=== PATIENT | female | born 1965 | race Caucasian/White ===

== ENCOUNTER 2016-06-04 08:47 | Day surgery (SDC) | payer BC ==
[~2016-06-04] VITALS: Ht 154.9 cm; Wt 63.5 kg
[~2016-06-04 08:47] MED LIST: BUPIVACAINE MPF 0.5% 30 ML VIAL. ONE; CEFAZOLIN 1GM IVPB FOR OMNI 50 ML IV ONE; EPINEPHRINE 30 MG/30 ML VIAL. ONE; FENTANYL PF 100 MCG/2 ML VIAL. IV PRN; HYDROMORPHONE 2 MG/ML VIAL. IV PRN; IV RINGERS,LACTATED 1000ML 1,000 ML IV SCH; LIDOCAINE 1% 1 ML SYRINGE. ID PRN; LIDOCAINE 1% 20 ML VIAL. ONE; ONDANSETRON PF 4 MG/2 ML VIAL. IV PRN; PROCHLORPERAZINE 10 MG/2 ML VIAL. IV PRN
[2016-06-04 09:35] LABS: NEG OBC UR NEG; POS OBC UR POS
[2016-06-04] MEDS ORDERED: PROPOFOL 20 ML IV ONE (10:01)
[2016-06-04] MEDS ORDERED: FENTANYL PF 100 MCG/2 ML VIAL. ONE ×2 (10:02→11:53)
[2016-06-04] MEDS ORDERED: LIDOCAINE 2% 100 MG/5 ML DISP.SYRIN. ONE (10:02)
[2016-06-04] MEDS ORDERED: ONDANSETRON PF 4 MG/2 ML VIAL. ONE (10:02)
--- NOTE | 2016-06-04 10:22 | DISCH ---
DISCHARGE INSTRUCTIONS Condition on Discharge Condition on Discharge: Stable Activity After Discharge Activity Instructions for Disc: No restrictions, Other, see below Other activity instructions: WBAT Bathing Instructions: Shower-keep dressing dry Weight Bearing Status after Di: As tolerated, Non weight bearing Diet after Discharge Diet after Discharge: Regular Wound Incision Care Wound/Incision Care: Ice to area for comfort, Keep wound/cast CDI, Change dressing Contacting the DR. after DC Call your doctor for: Concerns you may have Follow-Up Follow up with: Franck in 2wks SOLEDAD CABRERA II, MD Jun 04, 2016 10:22
--- NOTE | 2016-06-04 10:23 | PDOC ---
BRIEF OPERATIVE NOTE Date: Jun 04, 2016 Pre-Op Diagnosis L ACL tear Post-Op Diagnosis same Procedure Performed L ACL recon with hybrid graft Surgeon Franck Mg Anesthesia Type: General Blood Loss 10mL Complications none SOLEDAD CABRERA II, MD Jun 04, 2016 10:23
[2016-06-04] MEDS ORDERED: EPHEDRINE PF IN SALINE 50 MG/5 ML DISP.SYRIN. IV ONE (11:04)
[2016-06-04] MEDS ORDERED: SEVOFLURANE 61 TO 120 MINUTES. IH ONE (12:23)
[2016-06-04] MEDS: FENTANYL PF 100 MCG/2 ML VIAL. IV PRN ×2 (13:12→13:18)
[2016-06-04] MEDS ORDERED: DOCU-27 PO (13:21)
[2016-06-04] MEDS ORDERED: OXYC-323 PO (13:22)
[2016-06-04] MEDS ORDERED: ONDA4TAB10 SL (13:22)
[2016-06-04] MEDS ORDERED: OXYCODONE/APAP 5/325 TABLET. PO ONE (13:30)
[2016-06-04] MEDS: MORPHINE SULFATE 2 MG/ML DISP.SYRIN. IV PRN ×2 (13:40→13:50)
[2016-06-04 14:20] VITALS: BP 112/78
--- NOTE | 2016-06-04 15:02 | OP ---
DATE OF SURGERY: 06/04/2016 SURGEON: Ronnie Cabrera MD SOFTWARE VERIFICATION ENGINEER: Ioana Mg. ANESTHESIA: General. PREOPERATIVE DIAGNOSIS: Left knee anterior cruciate ligament tear. POSTOPERATIVE DIAGNOSES: 1. Left knee anterior cruciate ligament tear. 2. Small superficial scuffing of posterior aspect of the lateral meniscus. FINDINGS: 1. A complete ACL tear off the femoral side. Intact, but soft cartilage at her medial femoral condyle as well as proximal tibia. Intact and stable medial meniscus. 2. Intact PCL. 3. No changes at her patellofemoral joint. 4. Her lateral compartment had a 5 x 1-cm area where there was partial thickness cartilage loss, but no exposed bone. This was approximately at 20 or 30 degrees of flexion. Her lateral meniscus itself had a 1 mm x 3 mm area of superficial scuffing without a complete tear. PROCEDURE PERFORMED: 1. Arthroscopic autograft hamstring hybrid ACL reconstruction. 2. Debridement of lateral meniscus tear. COMPLICATIONS: None. ESTIMATED BLOOD LOSS: 25 mL. COMPONENTS INSERTED: 1. [employer]hew 15 mm in length Endobutton. 2. A 10-mm Biomet TunneLoc. REASON FOR PROCEDURE: The patient is a very pleasant 50-year-old who injured her knee skiing. She was seen and evaluated in my outpatient orthopedic surgery clinic and clinical and radiographic evidence were consistent with an ACL tear. We had a discussion of the risks, benefits, and alternatives as well as rationale for ACL reconstruction and the rehab and she wished to proceed in order to maintain her active lifestyle. DESCRIPTION OF PROCEDURE: The patient was greeted in the preoperative area by myself where the correct extremity was marked and verified. She was taken to the operative suite and antibiotics started en route. Once in the OR, she was transferred gently supine to the OR table and underwent successful induction of her general anesthesia. I then conducted examination under anesthesia, which revealed positive Keisha with a solid endpoint, positive pivot shift, negative dial in the knee that was stable to varus and valgus in extension and 30 degrees of flexion. We then proceeded to place a bolster at her hip and padded foot rest across the table to maintain her knee at 90 degrees. We then placed and taped a nonsterile tourniquet to her left thigh. We then proceeded to prep and drape left lower extremity in our usual sterile fashion and conducted our standard preoperative timeout. I then palpated and marked her surface anatomy including patella, patellar tendon and tibial tuberosity as well as my incision for my hamstring harvest. I then began the procedure by exsanguinating the extremity with an Esmarch and insufflating the tourniquet to 300 mmHg. I then incised skin for my hamstring harvest over proximal medial tibia and dissected through subcutaneous tissue with electrocautery and then bluntly. I palpated for her proximal hamstring tendon and used a Yolie to incise the fascia above this. I then opened the fascia and used a 90-degree clamp to free up the adherent surrounding soft tissue from the hamstring tendon. I then clamped the hamstring tendon and then released it sharply off bone. I then placed a running #2 Ultrabraid in a whipstitch fashion through this end and released my clamp. I then freed up the adherent tendinous adhesions bluntly and with [place]. I then used the tendon stripper to harvest the graft. The graft was taken to the back table where it was denuded of muscle and fat. It was cut to 21 cm in length and then another #2 Ultrabraid was whipstitched to the other end. The graft was then placed in a moistened lap. We then had our peroneus longus allograft thawing and I removed about 25% of this and then whipstitched #2 Ultrabraid at either end of this as well. We sized this graft and it was 9 at the femur and 9.5 at the tibia. I then placed the graft through the Endobutton and placed it under tension and then wrapped a lap sponge around it. I then directed my attention back to the arthroscopic portion. It should be noted that my social services assistant, Ioana did most of the placement of the stitches and the graft while I was debriding the ACL. The ACL was debrided with combination of shaver and biter. I did use an open end curette at the medial aspect of the lateral femoral condyle as well. I then used a microfracture awl to esme my anticipated tunnel placement and then inspected this from an anteromedial vantage point and was happy with placement. I used our tip guide for the 55 degrees referencing the PCL as well as anterior horn of the lateral meniscus and advanced the guidewire for a tibial tunnel. I was happy with the position and orientation of this tunnel. We then protected the drill tip with a curette and advanced our reamer through the tibia and I then cleaned up the tunnel with the shaver. We then placed our tunnel plug. We then hyperflexed the knee and using #6 over the top guide, which put me at my marked position. I advanced the Beath pin out and brought in the subcutaneous tissue followed by an Endobutton reamer. I then removed the Beath pin and Endobutton reamer and measured for a tunnel. It was approximately 33 mm. I then replaced the Beath pin out through skin and reamed with my femoral [place] reamer to approximately 27 and 28. I then removed the hardware and inspected the tunnel from the anteromedial portal and was happy with this position. She had an intact lateral cortex. After removing all the loose bony debris from the knee, I then hyperflexed the knee again, advanced the Beath pin and used this to pull a #2 Ultrabraid through the femoral tunnel. A loop grasper was then used to retrieve the other end of this and pulled it through the tibial tunnel. We then passed our graft without complication confirmed by a good toggle of the Endobutton on the lateral cortex, which disappeared with backward traction on the graft. I then put maximal backward traction on the graft after removing my camera and cycled the knee repeatedly. I then inserted my guidewire and my Biomet TunneLoc device and secured the graft to this. I then applied tension through the device. I then cycled the knee again and got another quick tension. I then impacted my TunneLoc into position. I then removed the TunneLoc insertion device. She had a negative Keisha with a solid endpoint at this point. I did reintroduce the camera and inspected the graft position. There was no impingement and I was happy with the graft position. I then inserted the camera and shaver in the suprapatellar pouch and social services assistant vigorously palpate behind the posterior aspect of the knee and we did this to make sure we removed all loose bony debris. After this, all excess arthroscopic fluid and the arthroscopic instrumentation were removed from the knee. I then trimmed the ends of the graft at the tibial tunnel and used the shaver sheath to inject local anesthetic into her hamstring area. We then closed the tibial incision with inverted interrupted 2-0 Vicryl followed by running 4-0 Monocryl in subcuticular fashion. Simple interrupted nylon was used for the portals. The leg was cleansed and dried and sterile dressing was applied followed by cast padding and Jg wrap and hinged knee brace in full range of motion. Postop plan is to discharge the patient, weightbearing as tolerated with crutches. She will follow up with me in 2 weeks, sooner should problems arise. Prior to accomplishing wound closure, all counts were reported correct x 2. The patient tolerated the surgery well and at the conclusion of surgery was transferred gently supine to the recovery room cart and taken to PACU in stable and extubated condition. RONNIE CABRERA MD DR: YENNIFER/joaquín JOB#: [id number] / [id number] ALIYA
== END 2016-06-04 15:14 | disposition home or self-care (01) ==
LOC: SURG 08:47
PROVIDERS: ATTEND Orthopaedic Surgery Sports Medicine
DX: S83.512A Sprain of anterior cruciate ligament of left knee, initial encounter (principal); S80.02XA Contusion of left knee, initial encounter; X58.XXXA Exposure to other specified factors, initial encounter; Y93.9 Activity, unspecified; Y92.9 Unspecified place or not applicable; Y99.9 Unspecified external cause status
CPT/HCPCS: 29888; 81025; C1713; C1763; C1782; J0171; J0690; J0780; J2270; J2405; J2704; J3010; J3490